=== PATIENT | male | born 1970 | race Hispanic/Latino ===

== ENCOUNTER 2023-08-15 21:42 | Emergency (ER) | payer BC, SELFPAY ==
[2023-08-15 21:45] VITALS: BP 122/91
[2023-08-15 22:09] LABS: % Basophils 1.1 % (0-2); % Eosinophils 18.6 % (0-6); % Immature Granulocytes 0.3 % (0-0.5); % Lymphocytes 32.3 % (20.5-51.1); % Monocytes 8.3 % (1.7-9.3); % Neutrophils 39.4 % (42.2-75.2); Absolute Basophils 0.1 10^3/uL (0-0.2); Absolute Eosinophils 1.8 10^3/uL (0-0.7); Absolute Lymphocytes 3.1 10^3/uL (1.2-3.4); Absolute Monocytes 0.8 10^3/uL (0.1-0.6); Absolute Neutrophils 3.7 10^3/uL (1.4-6.5); Hematocrit 42.9 % (39.0-52.0); Hemoglobin 15.1 g/dL (13.0-18.0); Mean Corp Hgb Conc. 35.2 g/dL (33.0-37.0); Mean Corpuscular Hgb 29.7 pg (27.0-31.0); Mean Corpuscular Volume 84.4 fL (80.0-94.0); Mean Platelet Volume 9.2 fL (7.4-10.4); Nucleated Red Blood Cells % 0 % (-); Platelet Count 388 10^3/uL (130-400); Red Blood Cell Count 5.08 10^6/uL (4.70-6.10); Red Cell Dist. Width 13.2 % (11.5-14.5); White Blood Cell Count 9.4 10^3/uL (4.8-10.8)
[2023-08-15 22:34] LABS: ALT (SGPT) 29 U/L (0-50); AST (SGOT) 36 U/L (17-59); Albumin 4.2 g/dl (3.5-5.0); Alkaline Phosphatase 88 U/L (38-126); Blood Urea Nitrogen 23 mg/dl (9-20); Calcium 9.1 mg/dl (8.4-10.2); Carbon Dioxide 27 mmol/L (22-30); Chloride 106 mmol/L (98-107); Glucose 102 mg/dl (70-99); Potassium 3.9 mmol/L (3.5-5.1); Sodium 140 mmol/L (135-145); Total Bilirubin 0.5 mg/dl (0.2-1.3); Total Protein 7.2 g/dl (6.3-8.2); eGFR > 60.00
--- NOTE | 2023-08-15 22:42 | ED.GENMED ---
History of Present Illness
<DOUG Brian - Last Filed: 08/16/23 01:00>
General
Chief Complaint: Headache
Source: patient and family
Time Seen by Provider: 08/15/23 22:41
Travel History
Have you had any contact with someone who has COVID-19?: No
Do you have any symptoms of coronavirus? Fever > 100 degrees, chills, cough, shortness of breath, sore throat, loss of taste or smell, muscle aches, or headache?: No
History of Present Illness
History of Present Illness:
Pt is a 52 year old male with a PMHx of asthma presenting with headache x 1 hour. He notes the headache has been coming and going for some time now but tonight it was severe. He did not take anything for the headache and it resolved approximately 5
minutes prior to being assessed at 11 pm. He notes the headache is localized her his left side and feels like a stabbing pain when it occurs. he denies any associated photophobia, balance issues, N/V, weight changes, fevers/chills, fatigue, vision
or hearing changes. 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 He denies handling exposure to pesticides at his job. He also reports flushing and sweating on the right side of his body but
primarily of his face x approximately 2 months. He states it is most apparent after he works out. He states just prior to his sweating and flushing beginning 2 months ago he took several doses of OTC ashwaganda and Shilajit which he discontinued
after several days. He otherwise denies any new medications.
Past History
<DOUG Brian - Last Filed: 08/16/23 01:00>
Past History
ED Past Medical History: Asthma, GERD and Hypercholesterolemia
ED Past Surgical History: None
Social History
Tobacco: Non-smoker
Alcohol: Daily
Drug: None
Personal:
Living: with family
Employment: Employed
Review of Systems
<DOUG Brian - Last Filed: 08/16/23 01:00>
Review of Systems
Constitutional: Reports no symptoms
EENT: Reports no symptoms
Respiratory: Reports no symptoms
Cardiac: Reports diaphoresis (right side only)
ABD/GI: Reports no symptoms
: Reports no symptoms
Musculoskeletal: Reports joint pain (mild left shoulder pain)
Skin: Reports other (flushing of right side)
Neurological: Reports headache (L sided )
Endocrine: Reports no symptoms
Hematologic/Lymphatic: Reports no symptoms
Psychiatric: Reports no symptoms
Phy Exam
<DOUG Brian - Last Filed: 08/16/23 01:00>
General Physical Exam
General Presentation: well appearing and no apparent distress
General age: appears stated age
General Skin: warm
General Habitus: normal
General Mental: alert
General Hydration: appears well hydrated
ENT Exam
ENT Exam: EOMI, TM's normal, pharynx normal, neck supple, normocephalic and other (TTP of neck around location of tonsillar lymph nodes but no lymphadenopathy noted)
Eye Exam
Eye Exam General: abnormal pupil: left (anisocoria )
Pupil Exam: Bilateral: round and reactive
Neurological Exam
Neurological Exam: alert and oriented x3
Mental
Mental Status: oriented to person, oriented to place, oriented to time and responds to voice
Describe Speech: normal speech
Cranial
EOM (CN3/4/6): intact
Motor
Seizure Activity: none
Sensory
Sensory Exam: intact
Musculoskeletal Exam
Musculoskeletal Exam: full ROM (of neck)
Skin Exam
Skin Exam: normal color and warm/dry
Psychiatric Exam
Psychiatric Exam: normal mood/affect
Course
<DOUG Brian - Last Filed: 08/16/23 01:00>
Orders/Labs/Results
Orders:
Orders
08/15/23 22:03
Complete Blood Count/With Diff Urgent
Comprehensive Metabolic Panel Urgent
08/15/23 23:21
CT Head & Neck Angio W/wo IV Urgent
Comment:
Reason For Exam: intermittent L H/A with anisocoria,R anhidrosis
Abnormal Lab Results
08/15/23
22:03
Absolute Monos (auto) 0.8 H 10^3/uL
(0.1-0.6)
Absolute Eos (auto) 1.8 H 10^3/uL
(0-0.7)
Neutrophils % 39.4 L %
(42.2-75.2)
Eosinophils % 18.6 H %
(0-6)
BUN 23 H mg/dl
(9-20)
Glucose 102 H mg/dl
(70-99)
08/15/23 22:03
08/15/23 22:03
Vital Signs
Initial and Last Documented VS:
Initial Vital Signs
Temp Pulse Resp BP Pulse Ox
98.4 F 117 16 122/91 99
08/15/23 21:45 08/15/23 21:45 08/15/23 21:45 08/15/23 21:45 08/15/23 21:45
Last Documented Vital Signs
Temp Pulse Resp BP Pulse Ox
98.4 F 117 16 122/91 99
08/15/23 21:45 08/15/23 21:45 08/15/23 21:45 08/15/23 21:45 08/15/23 21:45
<Treva Robledo DO - Last Filed: 08/16/23 01:18>
Orders/Labs/Results
Orders:
Orders
08/15/23 22:03
Complete Blood Count/With Diff Urgent
Comprehensive Metabolic Panel Urgent
08/15/23 23:21
CT Head & Neck Angio W/wo IV Urgent
Comment:
Reason For Exam: intermittent L H/A with anisocoria,R anhidrosis
Abnormal Lab Results
08/15/23
22:03
Absolute Monos (auto) 0.8 H 10^3/uL
(0.1-0.6)
Absolute Eos (auto) 1.8 H 10^3/uL
(0-0.7)
Neutrophils % 39.4 L %
(42.2-75.2)
Eosinophils % 18.6 H %
(0-6)
BUN 23 H mg/dl
(9-20)
Glucose 102 H mg/dl
(70-99)
08/15/23 22:03
08/15/23 22:03
Vital Signs
Initial and Last Documented VS:
Initial Vital Signs
Temp Pulse Resp BP Pulse Ox
98.4 F 117 16 122/91 99
08/15/23 21:45 08/15/23 21:45 08/15/23 21:45 08/15/23 21:45 08/15/23 21:45
Last Documented Vital Signs
Temp Pulse Resp BP Pulse Ox
98.4 F 117 16 122/91 99
08/15/23 21:45 08/15/23 21:45 08/15/23 21:45 08/15/23 21:45 08/15/23 21:45
north;DOUG Brian - Last Filed: 08/16/23 01:00>
MDM/Problems Addressed
Differential Diagnosis Includes:
iatrogenic Sharmila syndrome, space occupying lesion, carotid dissection
MDM/Problems Addressed:
Left sided headache, left sided anhydrosis
<DOUG Brian - Last Filed: 08/16/23 01:00>
*Critical Care Note
Total Time (30-74mins, 75-104mins- exclusive of procedures): Not Applicable
<Treva Robledo DO - Last Filed: 08/16/23 01:18>
*Radiology
Radiology exam reviewed: radiology read reviewed
*Pulse Oximetry
Patient hypoxic: no
ED Attending Note
<DOUG Brian - Last Filed: 08/16/23 01:00>
-
Portions of this chart may have been created with voice recognition software.� Occasional wrong word or��sound alike� substitutions may have occurred due to the inherent limitations of voice recognition software.
<Treva Robledo DO - Last Filed: 08/16/23 01:18>
ED Attending Note
Patient seen and examined by attending physician: Yes
I performed the substantive portion of visit, reviewed & personally made and approve the management plan that is documented in note by myself or LYLE.: Yes
I performed a history and physical exam of patient and discussed management with resident, I reviewed resident's note and agree with documented findings and plan of care.: Yes
ED Attending Note:
This is a 52-year-old gentleman who has history of GERD, mild intermittent asthma, prediabetes who complains of over 1 month history of intermittent right facial flushing, diaphoresis accompanied with intermittent sharp stabbing pain of the left
side of his head. The symptoms are much worse with activity especially with exercise/running. He generally exercises/runs twice per week for quite some time but over the past month has had limitations in exercise due to left-sided headache which
she describes as sharp stabbing intermittent pains accompanied with significant right facial flushing and right facial diaphoresis.
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
He denies vision difficulty, no chest pain no cough no shortness of breath, no dizziness nor lightheadedness.
His only daily medication is rlyi-hsp-ofrkrte acid mariann such as omeprazole.
He denies alcohol nor drug use.
He follows with an [facility] and states he was evaluated 1 month ago, described the symptoms with no specific diagnosis nor plan for evaluation.
GENERAL: 52-year-old gentleman appears his stated age, bright and alert, pleasant, appears in no acute distress. and daughter are accompanying.
EYE: Anisocoria with miosis of left pupil and questionable very mild ptosis on the left. Anicteric
NECK: Supple, nontender, no meningismus, no significant adenopathy.
ENT: posterior pharynx is clear, oral mucosa is moist. TM clear b/l, nares patent.
CARDIAC: Regular rate and rhythm. no murmur.
LUNGS: Clear breath sounds bilaterally, no acute respiratory distress, no wheezes/rales/rhonchi
ABDOMEN: Soft, nondistended, without focal tenderness, no r/g, no cvat. normoactive BS.
NEUROLOGICAL: Alert and oriented x3, no focal neuro deficits. Gait is cunha and steady.
SKIN: Warm and dry, normal color, skin intact. No rash. No harlequin sign currently but according to triage nurse patient was noted to have significant, well-demarcated right-sided facial flushing upon initial evaluation.
MUSCULOSKELETAL: No C/C/E. peripheral pulses are full and equal b/l. No palpable tenderness.
PSYCH: Normal and appropriate interaction.
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 With complaints of intermittent left-sided headache must consider intracranial abnormality, concern for potential subacute left carotid artery dissection thus will check CT/CTA of the head and
neck.
08/16/2023 [address]/CTA of the head and neck is unremarkable.
Labs are unremarkable.
Case discussed via [place] text with neurology on-call, Dr. Vera.
Plan is for follow-up with neurology via the [facility].
Discharge Plan
Departure
Patient Disposition: Home (Routine Discharge)
Date of Disposition: 08/16/23
Time of Disposition: 01:02
Patient with high blood pressure during this ER visit?: No
Condition: Good
Discharge Problem:
Sharmila's syndrome
Instructions: Headache, Adult (DC)
Prescriptions:
No Action
ascorbic acid (vitamin C) [Vitamin C] 500 MG tablet
500 mg PO DAILY
fluticasone propion-salmeterol [Advair Diskus] 1 DISK blister with device
1 puff inhalation R DAILY
zinc 50 MG tablet
50 mg PO DAILY
pyridoxine (vitamin B6) [Vitamin B-6] 100 MG tablet
100 mg PO DAILY
albuterol sulfate 1 PUFF HFA aerosol inhaler
2 puff inhalation R Q4HPRN PRN (Reason: sob)
aa-[id number]-ED-Sw-Vg-dohutjb-lutein 1 EACH tablet
1 tab PO DAILY
dexamethasone [Decadron] 6 MG tablet
6 mg PO DAILY Qty: 3 0RF
Referrals:
Devendra Andrews Sr., MD [Family Provider] - Call in 1-3 days for appt
Hitesh Vera MD [Active] -
Activity Restrictions/Additional Instructions:
Your history and exam is concerning for Sharmila syndrome which is not abnormality along the sympathetic nervous chain along your upper chest/neck/brainstem.
Oftentimes, even with imaging we are unable to locate the exact area of abnormality and it is reassuring that you have had no accompanying neurologic signs/no weakness, no difficulty with ambulation, no difficulty with routine regular tasks.
Your CAT scan of head and neck is reassuring, unremarkable.
I want you to follow-up with the [facility] and through the clinic they should be able to arrange for follow-up/further evaluation with a neurologist.
I have been in touch with Dr. Vera, one of our neurologist's on staff.
Interventions
Interventions:
*Risk Screen - Suicide Last Done: 08/15/23 21:45
*General Assessment Last Done: 08/15/23 21:45
*Neglect/Abuse Screening Last Done: 08/15/23 21:45
ED- Fall Risk Assessment Last Done: 08/15/23 22:47
*ED COVID-19 Vaccine History Last Done: 08/15/23 21:45
ED- Neurological Assessment Last Done: 08/15/23 22:47
Discharge Date and Time
Print Language: MALAYSIAN
[2023-08-16 01:18] VITALS: BP 116/77
== END 2023-08-16 01:29 | disposition home or self-care (01) ==
LOC: EMR 21:42
PROVIDERS: Emergency Medicine; EMERGENCY PHYSICIAN Emergency Medicine; FAMILY PHYSICIAN Internal Medicine Cardiovascular Disease
DX: G90.2 Horner's syndrome (principal); K21.9 Gastro-esophageal reflux disease without esophagitis; J45.20 Mild intermittent asthma, uncomplicated
CPT/HCPCS: 99285; 70496; 70498; 80053; 85025; Q9967